=== PATIENT | female | born 1995 | race African-American/Black ===

== ENCOUNTER 2023-09-01 08:23 | Day surgery (SDC) | payer OTHER ==
[~2023-09-01] VITALS: Ht 17.8 cm; Wt 83.9 kg
[2023-09-01] MEDS ORDERED: fentaNYL citrate 0.05 MG/ML VIAL ONE (10:12)
[2023-09-01] MEDS ORDERED: LIDOCAINE 2% 100 MG/5 ML UJET TP ONE (10:12)
[2023-09-01] MEDS ORDERED: MIDAZOLAM 5 MG/5 ML VIAL ONE (10:12)
[2023-09-01] MEDS: fentaNYL citrate 0.05 MG/ML VIAL IVP ONE ×2 (10:46→11:00)
[2023-09-01] MEDS: MIDAZOLAM 2 MG/2 ML VIAL IVP ONE ×2 (10:46→11:00)
== END 2023-09-01 12:17 | disposition home or self-care (01) ==
LOC: MOR 08:23 → MMU 08:24 → MOR 12:17
PROVIDERS: ATTEND Internal Medicine Gastroenterology
DX: K59.00 Constipation, unspecified (principal); K62.5 Hemorrhage of anus and rectum; K22.89 Other specified disease of esophagus; R11.2 Nausea with vomiting, unspecified; J45.909 Unspecified asthma, uncomplicated; G43.909 Migraine, unspecified, not intractable, without status migrainosus; Z79.899 Other long term (current) drug therapy; Z98.890 Other specified postprocedural states
CPT/HCPCS: 43235; 45378; J2250; J3010